=== PATIENT | female | born 1960 | race Caucasian/White ===

== ENCOUNTER 2024-02-12 08:59 | Emergency (ER) | payer OTHER ==
[~2024-02-12] VITALS: Ht 170.2 cm; Wt 68.2 kg
[2024-02-12 09:04] VITALS: BP 125/88; PULSE 89; O2SAT 98
[2024-02-12 11:26] VITALS: RESP 18
[2024-02-12] MEDS: ketorolac tromethamine 15mg/ml inj. IM ONE (11:26)
[2024-02-12 11:31] VITALS: TEMP 98.7
== END 2024-02-12 11:34 | disposition home or self-care (01) ==
LOC: ER 09:00
DX: M79.661 Pain in right lower leg (principal)
CPT/HCPCS: 73590; 96372; 99283; J1885